=== PATIENT | male | born 1950 | race Caucasian/White ===

== ENCOUNTER 2019-05-16 16:38 | Inpatient (IN) | payer MEDICAID ==
[2019-05-16 16:54] LABS: ADD MAN DIFF? NO
[2019-05-16 16:59] LABS: BASOPHIL # 0.1 10^3/ul (0.0-0.1); BASOPHILS % 1.1 % (0.0-2.0); EOSINOPHILS # 0.3 10^3/ul (0.0-0.5); EOSINOPHILS % 4.4 % (0.0-7.0); HEMATOCRIT 45.5 % (42.0-52.0); HEMOGLOBIN 14.9 g/dl (14.0-18.0); LYMPHOCYTES # 1.8 10^3/ul (0.8-2.9); LYMPHOCYTES % 31.4 % (15.0-51.0); MEAN CORPUSCULAR HEMOGLOBIN 30.2 pg (29.0-33.0); MEAN CORPUSCULAR HGB CONC 32.7 g/dl (32.0-37.0); MEAN CORPUSCULAR VOLUME 92.1 fl (82.0-101.0); MEAN PLATELET VOLUME 9.7 fl (7.4-10.4); MONOCYTE # 0.5 10^3/ul (0.3-0.9); MONOCYTES % 7.9 % (0.0-11.0); NEUTROPHIL # 3.1 10^3/ul (1.6-7.5); PLATELET COUNT 198 10^3/UL (140-415); RED BLOOD COUNT 4.94 10^6/ul (4.70-6.10); RED CELL DISTRIBUTION WIDTH 12.3 % (11.5-14.5)
[2019-05-16 16:59] LABS: WHITE BLOOD COUNT 5.7 10^3/ul (4.8-10.8)
[2019-05-16] MEDS: SOD CHLORIDE 0.9% 1,000 ML IV (17:06)
[2019-05-16 17:16] LABS: ANION GAP 11 (5-13); BLOOD UREA NITROGEN 27 mg/dl (7-20); CALCIUM 9.8 mg/dl (8.4-10.2); CARBON DIOXIDE 24 mmol/L (21-31); CHLORIDE 110 mmol/L (97-110); CREATININE 1.12 mg/dl (0.61-1.24); Estimated GFR > 60 mL/min (>60); GLUCOSE 153 mg/dl (70-220); MAGNESIUM 2.1 mg/dl (1.7-2.5); POTASSIUM 3.9 mmol/L (3.5-5.1); SODIUM 145 mmol/L (135-144)
[2019-05-16 17:28] LABS: TROPONIN-I < 0.012 ng/ml (0.000-0.120)
[2019-05-16 17:33] LABS: FREE T4 (FREE THYROXINE) 0.85 ng/dl (0.78-2.44)
[2019-05-16] MEDS ORDERED: ACETAMINOPHEN 325 MG TAB PO ×2 (18:00→19:30)
[2019-05-16] MEDS ORDERED: ONDANSETRON 4 MG INJ IV ×2 (18:00→19:30)
[2019-05-16] MEDS ORDERED: ZOLPIDEM 5 MG TAB PO (19:30)
[2019-05-16] MEDS ORDERED: NACL 0.9% 3 ML SYG IV (19:30)
[2019-05-16] MEDS ORDERED: morphine 2 MG INJ IV (19:30)
[2019-05-16] MEDS ORDERED: HYDROCODONE/APAP (5/325) TAB PO (19:30)
[2019-05-16] MEDS ORDERED: DOCUSATE SODIUM 100 MG CAP PO (19:30)
[2019-05-16] MEDS: APIXABAN 5 MG TABLET PO (20:28)
[2019-05-16] MEDS: TAMSULOSIN (SR) 0.4 MG CAP PO (20:28)
[2019-05-16 23:11] LABS: CREATINE KINASE 146 IU/L (23-200)
[2019-05-16 23:26] LABS: CK INDEX 0.8; CK-MB 1.16 ng/ml (0.0-2.4); TROPONIN-I < 0.012 ng/ml (0.000-0.120)
[2019-05-17 06:06] LABS: ADD MAN DIFF? NO; BASOPHIL # 0.1 10^3/ul (0.0-0.1); BASOPHILS % 0.8 % (0.0-2.0); EOSINOPHILS # 0.3 10^3/ul (0.0-0.5); EOSINOPHILS % 4.9 % (0.0-7.0); HEMATOCRIT 42.7 % (42.0-52.0); LYMPHOCYTES # 1.4 10^3/ul (0.8-2.9); LYMPHOCYTES % 22.2 % (15.0-51.0); MEAN CORPUSCULAR HEMOGLOBIN 30.4 pg (29.0-33.0); MEAN CORPUSCULAR HGB CONC 32.8 g/dl (32.0-37.0); MEAN CORPUSCULAR VOLUME 92.6 fl (82.0-101.0); MEAN PLATELET VOLUME 10.1 fl (7.4-10.4); MONOCYTE # 0.5 10^3/ul (0.3-0.9); MONOCYTES % 7.7 % (0.0-11.0); NEUTROPHIL # 3.9 10^3/ul (1.6-7.5); NEUTROPHILS % 64.2 % (39.0-77.0); PLATELET COUNT 196 10^3/UL (140-415); RED BLOOD COUNT 4.61 10^6/ul (4.70-6.10); RED CELL DISTRIBUTION WIDTH 12.3 % (11.5-14.5)
[2019-05-17 06:06] LABS: WHITE BLOOD COUNT 6.1 10^3/ul (4.8-10.8)
[2019-05-17 06:20] LABS: INR 1.04; PROTIME 13.7 Sec (11.9-14.9); PT RATIO 1.1
[2019-05-17 06:27] LABS: CREATINE KINASE 124 IU/L (23-200)
[2019-05-17 06:30] LABS: PHOSPHORUS 3.7 mg/dl (2.5-4.9)
[2019-05-17 06:30] LABS: CHOL/HDL RATIO 5.3 RATIO; CHOLESTEROL 170 mg/dl (100-200); HDL CHOLESTEROL 32 mg/dl (30-78); LDL CHOLESTEROL,CALCULATED 117 mg/dl; MAGNESIUM 2.1 mg/dl (1.7-2.5); TRIGLYCERIDES 107 mg/dl (0-149)
[2019-05-17 06:35] LABS: ALANINE AMINOTRANSFERASE 22 IU/L (13-69); ALBUMIN/GLOBULIN RATIO 1.25; ALKALINE PHOSPHATASE 51 IU/L (42-121); ANION GAP 8 (5-13); ASPARTATE AMINO TRANSFERASE 21 IU/L (15-46); BILIRUBIN,INDIRECT 0.7 mg/dl (0-1.1); BILIRUBIN,TOTAL 0.7 mg/dl (0.2-1.3); BLOOD UREA NITROGEN 19 mg/dl (7-20); CALCIUM 9.5 mg/dl (8.4-10.2); CARBON DIOXIDE 26 mmol/L (21-31); CHLORIDE 110 mmol/L (97-110); CREATININE 0.97 mg/dl (0.61-1.24); Estimated GFR > 60 mL/min (>60); GLUCOSE 97 mg/dl (70-220); POTASSIUM 3.9 mmol/L (3.5-5.1); SODIUM 144 mmol/L (135-144); TOTAL PROTEIN 7.2 g/dl (6.1-8.1)
[2019-05-17 06:36] LABS: B-TYPE NATRIURETIC PEPTIDE 423 PG/ML (0-125); CK INDEX 0.9; CK-MB 1.15 ng/ml (0.0-2.4); TROPONIN-I 0.015 ng/ml (0.000-0.120)
[2019-05-17 06:41] LABS: FREE T4 (FREE THYROXINE) 0.83 ng/dl (0.78-2.44)
[2019-05-17 06:42] LABS: FREE THYROXINE INDEX (Calc) 2.13 ug/ml (0.65-3.89); T3 UPTAKE 49.5 % (23.5-40.5); T4 (THYROXINE) 4.3 ug/dl (5.5-11.0)
[2019-05-17 07:01] LABS: HEMOGLOBIN A1C 5.5 % (0-5.9)
[2019-05-17] MEDS: DOCUSATE SODIUM 100 MG CAP PO (08:47)
[2019-05-17] MEDS: APIXABAN 5 MG TABLET PO (08:47)
[2019-05-17] MEDS: AMLODIPINE 10 MG TAB PO (08:48)
[2019-05-17] MEDS: FUROSEMIDE 40 MG INJ IV (08:48)
[2019-05-17] MEDS: MULTIVITAMINS THERAPEUTIC TAB PO (08:48)
[2019-05-17] MEDS: PROPAFENONE 150 MG TAB PO (09:08)
[2019-05-17] MEDS ORDERED: DIGOXIN 0.125 MG TAB PO (13:00)
== END 2019-05-17 11:47 | disposition home or self-care (01) | DRG 309 ==
LOC: E/R 16:38 → 6WM 17:43
DX: I48.91 Unspecified atrial fibrillation (principal); J81.1 Chronic pulmonary edema; E87.0 Hyperosmolality and hypernatremia; I10 Essential (primary) hypertension; N40.0 Benign prostatic hyperplasia without lower urinary tract symptoms
CPT/HCPCS: 36415; 71045; 80048; 80053; 80061; 82550; 82553; 83036; 83735; 83880; 84100; 84436; 84439; 84443; 84479; 84484; 85025; 85610; 93005; 93306; 99285-25